=== PATIENT | male | born 1965 | race American Indian/Alaskan Native ===

== ENCOUNTER 2018-04-10 07:02 | Day surgery (SDC) | payer BC ==
[2018-04-10] MEDS ORDERED: ECOTRIN PO NR (08:28)
[2018-04-10] MEDS ORDERED: NACL 0.9% 500 ML 500 ML IV SCH (09:00)
[2018-04-10 09:10] LABS: Basophils % (Auto) 0.4 % (0.0-1.8); Eosinophils % (Auto) 0.7 % (0.0-4.3); Lymphocytes # (Auto) 2.1 K/mm3 (1.2-5.4); Lymphocytes % (Auto) 46.6 % (13.4-35.0); Mean Corpuscular HGB Conc 36 % (32-34); Mean Corpuscular Hemoglobin 30 pg (28-32); Mean Corpuscular Volume 85 fl (84-94); Monocytes # (Auto) 0.4 K/mm3 (0.0-0.8); Platelet Count 188 K/mm3 (140-440); Red Cell Distribution Width 13.5 % (13.2-15.2)
[2018-04-10 09:19] LABS: Hematocrit 43.1 % (35.5-45.6); Hemoglobin 15.5 gm/dl (11.8-15.2)
[2018-04-10 09:22] LABS: INR 0.91 (0.87-1.13)
[2018-04-10 09:28] LABS: BUN/Creatinine Ratio 10; Blood Urea Nitrogen 11 mg/dL (9-20); Calcium 8.8 mg/dL (8.4-10.2); Hemolysis Index 10
[2018-04-10] MEDS ORDERED: HEPARIN/NS 5000 UNIT/500ML(CATH LAB) 1,000 ML IR ONE (10:15)
[2018-04-10] MEDS ORDERED: CALAN ONE (10:15)
[2018-04-10] MEDS ORDERED: HEPARIN 10,000 UNITS/10 ML ONE (10:15)
[2018-04-10] MEDS ORDERED: NITROGLYCERIN SYRINGE 3 ML ONE (10:16)
[2018-04-10] MEDS ORDERED: SUBLIMAZE ONE (10:16)
[2018-04-10] MEDS ORDERED: VERSED ONE (10:16)
[2018-04-10] MEDS ORDERED: XYLOCAINE 2% INFILTRATI ONE (10:16)
--- NOTE | 2018-04-10 12:34 | Short Stay Summary ---
Short Stay Documentation Date of service: 04/10/18 - History H&P: obtained from office - Allergies and Medications Current Medications: Allergies No Known Allergies Allergy (Unverified 04/10/18 07:02) Home Medications Medication Instructions Recorded Confirmed Last Taken Type No Known Home Medications [No 04/10/18 04/10/18 Unknown History Reported Home Medications] Active Medications Sodium Chloride (Nacl 0.9% 500 Ml) 500 mls @ 50 mls/hr IV DIRECT XIMENA Stop: 04/10/18 18:59 Last Admin: 04/10/18 09:20 Dose: 50 mls/hr - Physical exam General appearance: no acute distress Integumentary: no rash HEENT: Atraumatic Lungs: Clear to auscultation Breasts: deferred Heart: Regular rate Gastrointestinal: normal Male Genitourinary: deferred Female Genitourinary: deferred Rectal Exam: deferred Extremities: no ischemia Neurological: Normal gait - Brief post op/procedure progress note Date of procedure: 04/10/18 Pre-op diagnosis: Abnormal MPI Post-op diagnosis: same Procedure: LHC, LV gram Anesthesia: MAC Findings: See report Surgeon: KIRA PLEITEZ Estimated blood loss: none Pathology: none Condition: stable - Hospital course Hospital course: Uneventful - Disposition Condition at discharge: Good Disposition: DC-01 TO HOME OR SELFCARE Short Stay Discharge Plan Activity: advance as tolerated Weight Bearing Status: Weight Bear as Tolerated Diet: low fat, low cholesterol, low salt Wound: keep clean and dry Special Instructions: smoking cessation Follow up with: AMAURY ESPITIA SR, MD [Primary Care Provider] - 7 Days
--- NOTE | 2018-04-10 13:36 | Cardiac Catherization Report ---
ORDERING PHYSICIAN: Jayda Lutz MD INDICATION FOR PROCEDURE: Chest pain, abnormal myocardial perfusion scan. PROCEDURES PERFORMED: 1. Selective left and right coronary angiography. 2. Left ventriculography. DESCRIPTION OF PROCEDURE: After obtaining the consent, the patient was draped using sterile technique. 1. After documenting adequate flow through the ulnar artery, 2% lidocaine was injected into the right wrist. 2. A 6-Mongolian vascular sheath was inserted into the right radial artery. 3. A 6-Mongolian JL3.5 catheter was used to selectively engage left coronary artery. 4. A 6-Mongolian JR4 catheter was used to selectively engage the right coronary artery. 5. A 6-Mongolian JR4 catheter was used to hand inject the left ventriculogram. 6. No complications occurred during the procedure. 7. Hemostasis was achieved at the end of the procedure using manual pressure. SPECIMEN REMOVED: None. ESTIMATED BLOOD LOSS: Minimal. Sedation administered was 1 mg of IV Versed and 50 mcg of IV fentanyl. Physician and the patient [id number] sedation start time 11:00 a.m. Physician and the patient [id number] sedation stop time 11:15 a.m. Total sedation time was 15 minutes. FINDINGS: HEMODYNAMICS: The aortic pressure was 125/95. LV systolic pressure 127 mmHg. Left ventricular end diastolic pressure 17 mmHg. CARDIAC STRUCTURES: The left ventricle is normal in size and systolic function. The left ventricular ejection fraction is estimated at 60%. CORONARY ANATOMY: 1. This is a right dominant circulation. 2. The left main is angiographically normal. 3. The left anterior descending artery has mild 10-20% luminal irregularities diffusely. 4. The left circumflex artery has a mild ectasia in the proximal segment, otherwise mild 10-20% luminal irregularities. 5. The right coronary artery is a dominant vessel. The right coronary artery is tortuous. The right coronary artery has mild 10-20% luminal irregularities. IMPRESSION: 1. Mild nonobstructive coronary artery disease. 2. Normal left ventricular size and systolic function. 3. LVEDP measured at 70 mmHg. RECOMMENDATIONS: 1. Medical therapy and risk factor modification. 2. Follow up with referring measurement superintendent. JOB# [id number] ZOEY/DONITA
[2018-04-10 14:06] VITALS: BP 117/86
--- NOTE | 2018-04-10 16:11 | Post Anesthesia Evaluation ---
- Post Anesthesia Evaluation Patient Participated: Yes Airway Patent: Yes Stable Respiratory Function: Yes Nausea/Vomiting: No Temp > 96.8F: Yes Pain Manageable: Yes Adequeate Hydration: Yes Anesthesia Complications: No Block Receding Appropriately: Not Applicable Patient on Ventilator: No
== END 2018-04-10 14:30 | disposition home or self-care (01) ==
LOC: CATHLABREC 07:02
PROVIDERS: ATTEND Internal Medicine
DX: I25.119 Atherosclerotic heart disease of native coronary artery with unspecified angina pectoris (principal); I10 Essential (primary) hypertension; Z79.82 Long term (current) use of aspirin; F17.200 Nicotine dependence, unspecified, uncomplicated
CPT/HCPCS: 36415; 80048; 85025; 85610; 85730; 93005; 93010; 93458; 99156; C1894; J1644; J2250; J3010; J7040; Q9967